=== PATIENT | male | born 1990 | race Caucasian/White ===

== ENCOUNTER 2016-06-16 14:13 | Day surgery (SDC) | payer OTHER ==
[~2016-06-16] VITALS: Ht 182.9 cm; Wt 59.5 kg
[2016-06-16] MEDS ORDERED: PEPCID (14:52)
[2016-06-16] MEDS ORDERED: PREDNISONE (14:52)
[2016-06-16 14:54] VITALS: Ht 182.9 cm; Wt 59.5 kg
[2016-06-16 15:43] VITALS: BP 118/79; PULSE 91; RESP 18
[2016-06-16] MEDS ORDERED: HYDROCORTISONE 100 MG INJ ONE (16:20)
[2016-06-16] MEDS ORDERED: PROPOFOL 40 ML ONE (16:43)
[2016-06-16] MEDS ORDERED: PROPOFOL 20 ML ONE (16:43)
[2016-06-16 17:20] VITALS: BP 108/67; PULSE 91; RESP 18
--- NOTE | 2016-06-17 05:41 | GILP ---
DATE OF PROCEDURE: 06/16/2016 PROCEDURE: Colonoscopy with biopsies, enteroscopy with biopsies. PREMEDICATION: Monitored anesthesia care by anesthesiologist. SURGEON: Denny Morgan MD. INSTRUMENT USED: Olympus colonoscope. PREPARATION: Adequate. TECHNIQUE: After informed consent, with the patient/relatives understanding the procedure, its indic ations potential risks and complications, including but not limited to: allergic reaction, bleeding, perforation, infection, missed lesions and after all pertinent questions were answered to the patie nt's satisfaction, the patient/relatives signed the witnessed informed consent. Following this, premedication was administered slowly IV push by under careful cardiovascular and re spiratory monitoring with pulse oximetry, automatic blood pressure and personnel monitor. Once the sedativ e effect was achieved, the patient was placed in the left lateral decubitus position, digital rectal examination was performed. The colonoscope was then introduced and advanced under visual control th roughout all segments of the colon including: the rectum, sigmoid, descending colon, splenic flexure , transverse colon, hepatic flexure, ascending colon and finally reaching the cecum which was clearl y identified by transillumination, finger indentation and the ileocecal valve. Careful examination o f the mucosa of the lower gastrointestinal tract both on insertion as well as withdrawal of the inst rument disclosed the following findings: Rectal Examination: No evidence of perirectal disease, no masses. Colonic Mucosa: The colonic mucosa is essentially unremarkable throughout. The ileocecal valve was clearly identified. The terminal ileum was entered as there is severe erythema, edema, and ulcerat ion of the mucosa typical for at least moderately severe Crohn ileitis. Multiple biopsies were obta ined. The instrument was withdrawn, biopsies were obtained of the right and left side of the colon randoml y to rule out microscopic colitis. The patient tolerated the procedure well and was transferred out of the Endoscopy Suite awake and in good condition to continue recovery under observation. No additional abnormalities were noted with the exception of small internal hemorrhoids. IMPRESSION: 1. Normal colonic mucosa to cecum. Random biopsies obtained, right and left colon, to rule out loc roscopic colitis. 2. Severely ileitis, biopsies obtained. PLAN: The patient is currently on prednisone 20 mg. I will attempt to add budesonide 9 mg daily. He is awaiting authorization from his insurance to go back to [facility] which in the past has been very effective in controlling his symptoms and ____. Biopsies will be reviewed as soon as available. Dictated By: DENNY STOVALL Conf#: [id number] DID#: [id number]
== END 2016-06-16 17:53 | disposition home or self-care (01) ==
LOC: GIL 14:13
PROVIDERS: ATTEND Internal Medicine Gastroenterology
DX: K52.9 Noninfective gastroenteritis and colitis, unspecified (principal)
CPT/HCPCS: 45380; 88305; J1720; Z7610